=== PATIENT | female | born 1970 | race Caucasian/White ===

== ENCOUNTER → 2016-09-11 | Outpatient (CLI) | payer BC ==
[~2016-09-11] MED LIST: CALC-446 PO; ESTR1PAT TD; FEXO180T56 PO; MULT-806 PO; OMEP20TA11 PO; [UNRECOGNIZED DRUG - CODE] TD
== END ==
LOC: WC.BC 13:06
DX: Z12.31 Encounter for screening mammogram for malignant neoplasm of breast (principal)
CPT/HCPCS: 77063; G0202

== ENCOUNTER → 2016-09-24 | Outpatient (CLI) | payer BC | LOC: IMA 11:00 | PROVIDERS: ATTEND Nurse Practitioner Obstetrics & Gynecology | DX: M81.8 Other osteoporosis without current pathological fracture (principal) ==